=== PATIENT | female | born 1980 | race Caucasian/White ===

== ENCOUNTER 2022-05-06 07:06 | Emergency (ER) | payer MEDICAID ==
[~2022-05-06] VITALS: Ht 167.6 cm; Wt 65.3 kg
--- OUTSIDE RECORDS SUMMARY | 2022-05-06 07:09 | XMS ---
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 Jerman has no Care Guidelines for this patient. [facility] (12 MO.) [facility] NOTE: Visits indicate total known visits. ED/C VISIT TRACKING (12 MO.) 05/06/2022 07:07 [facility] [place] TYPE: Emergency COMPLAINT: - MEDICAL CLEARANCE 05/06/2022 06:44 [facility] TYPE: Emergency COMPLAINT: - IRREGULAR HEART RATE INPATIENT VISIT TRACKING (12 MO.) No inpatient visits to display in this time frame [email or web address]
[2022-05-06] MEDS ORDERED: IBU600 MG PO (07:56)
--- NOTE | 2022-05-09 13:53 | EKG ---
[facility] [address] [facility] [place] [address] Signed Normal sinus rhythm with sinus arrhythmia Normal ECG No previous ECGs available Confirmed by HAILEE CARABALLO MD ([id number]) on 05/09/2022 1:52:42 PM Electronically Signed By: HAILEE CARABALLO MD 05/09/22 1353 PATIENT NAME: TRENT MENDEZ ANA LAURA Electrocardiogram DATE OF : 84 PHYSICIAN: HAILEE CARABALLO MD REPORT #: [id number] REPORT IS CONFIDENTIAL AND NOT TO BE RELEASED WITHOUT AUTHORIZATION
== END 2022-05-06 08:04 | disposition home or self-care (01) ==
LOC: ED 07:06
DX: R52 Pain, unspecified (principal); I47.1 Supraventricular tachycardia; F43.10 Post-traumatic stress disorder, unspecified; F41.9 Anxiety disorder, unspecified; I49.9 Cardiac arrhythmia, unspecified
CPT/HCPCS: 71045; 93005; 93010; 99285-25; A9270